=== PATIENT | male | born 2000 | race Caucasian/White ===

== ENCOUNTER 2024-10-16 23:55 | Emergency (ER) | payer MEDICARE, SELFPAY ==
[2024-10-17 00:01] VITALS: BP 129/78
[2024-10-17 00:05] VITALS: BP 129/78
--- NOTE | 2024-10-17 00:37 | ED.GENMED ---
History of Present Illness
General
Chief Complaint: Chest Pain
Source: patient
Exam Limitations: none
Time Seen by Provider: 10/17/24 00:19
History of Present Illness
History of Present Illness:
This is a 24 year old male that comes in with c/o chest tightness. States that for the past 24 hours he had had chest tightness. States that he felt like his heart was beating fast. States that he felt SOB when he would lay down. States that he had
this clicking in his back and he was told that the last time he was here he had Thoracic outlet syndrome. States that he did have chills. Denies any fever, abd pain, nausea, vomiting, diarrhea, headache, dizziness, urinary burning.
Past History
Past History
ED Past Medical History: Psychiatric (Anxiety) and Other (Asperger syndrome, RSV, Pilonidal cyst X2)
ED Past Surgical History: Other (Myringotomy tubes, Mole removed form neck)
Social History
Tobacco: Non-smoker
Alcohol: None
Drug: Marijuana
Personal: Single
Living: with family
Employment: Employed
Review of Systems
Review of Systems
All Other Systems: ROS reviewed and negative except as documented in HPI and ROS
Constitutional: Reports chills; Denies fever
EENT: Reports no symptoms
Respiratory: Reports trouble breathing; Denies cough
Cardiac: Reports chest pain
ABD/GI: Reports no symptoms; Denies abdominal pain, nausea, vomiting or diarrhea
: Reports no symptoms; Denies dysuria, frequency or urgency
Musculoskeletal: Reports no symptoms
Skin: Reports no symptoms
Neurological: Reports no symptoms; Denies dizzy or headache
Psychiatric: Reports no symptoms
Phy Exam
General Physical Exam
General Presentation: well appearing and no apparent distress
General age: appears younger than age
General Skin: warm and dry
General Habitus: normal
General Mental: alert
General Hydration: dry mucous membranes
ENT Exam
ENT Exam: TM's normal, pharynx normal and neck supple
Eye Exam
Eye Exam: EOMI
Cardiovascular Exam
Cardiovascular Exam: regular rate/rhythm, no edema, no murmur and normal peripheral pulses
Pulmonary Exam
Pulmonary Exam: lungs clear, no respiratory distress, no rales, chest non tender, no crackles, no rhonchi, no wheezing and no cough
Gastrointestinal Exam
Gastrointestinal Exam: normal bowel sounds, non tender, soft, no organomegaly, no pulsatile mass and non distended
Musculoskeletal Exam
Musculoskeletal Exam: full ROM and no edema
Skin Exam
Skin Exam: normal color, warm/dry, no rash and no petechia
Psychiatric Exam
Psychiatric Exam: normal mood/affect
Scores
Heart Score for Chest Pain Patients
STEMI patient?: No
History: Slightly or Non-Suspicious
ECG: Normal
Age: </= 45 years
Risk Factors: No Risk Factors
Troponin: </= Normal Limit
Heart Score for Chest Pain Patients: 0
Heart Score Risk: 2.5% MACE over next 6 weeks
Course
Orders/Labs/Results
Orders:
Orders
10/16/24 23:57
EKG [Electrocardiogram (*1)] Urgent
Reason for Study: Chest Pain
EKG- Treatment ONCE
10/17/24 00:36
CR Chest - 2 Views Urgent
Comment:
Reason For Exam: Chest pain
10/17/24 00:37
Ketorolac [Toradol] 30 mg IV NOW STA
10/17/24 00:52
Complete Blood Count/With Diff Urgent
Comprehensive Metabolic Panel Urgent
Troponin I Urgent
10/17/24 01:15
D-Dimer Urgent
Comment: REDRAW
Abnormal Lab Results
10/17/24
00:52
Absolute Lymphs (auto) 1.1 L 10^3/uL
(1.2-3.4)
Absolute Monos (auto) 0.8 H 10^3/uL
(0.1-0.6)
Neutrophils % 76.8 H %
(42.2-75.2)
Lymphocytes % 12.7 L %
(20.5-51.1)
Monocytes % 9.9 H %
(1.7-9.3)
Creatinine 0.6 L mg/dL
(0.7-1.3)
Glucose 139 H mg/dl
(70-99)
Albumin 5.1 H g/dl
(3.5-5.0)
10/17/24 00:52
10/17/24 00:52
Hyperglycemia, Troponin <0.012, D-dimer <0.27
Vital Signs
Initial and Last Documented VS:
Initial Vital Signs
Temp Pulse Resp BP Pulse Ox
98.2 F 101 16 129/78 98
10/17/24 00:01 10/17/24 00:01 10/17/24 00:01 10/17/24 00:01 10/17/24 00:01
Last Documented Vital Signs
Temp Pulse Resp BP Pulse Ox
98.2 F 83 16 118/68 99
10/17/24 00:01 10/17/24 01:45 10/17/24 01:45 10/17/24 01:45 10/17/24 01:45
MDM/Problems Addressed
Differential Diagnosis Includes:
reaction to marijuana. Coronary syndrome.
MDM/Problems Addressed:
This is a 24 year old male that comes in with c/o chest pain and SOB. States that he gets chest pain after he smokes marijuana and that he feels SOB when he lays down. States that this has been going on for the past 48 hours.
Will check labs, Chest x-ray.
Back into see patient. Explained that his blood work is normal. Chest x-ray is normal and D-dimer is negative. This may all be due to Anxiety. Patient to increase his water intake to 8-8oz glasses daily. Follow up with the family doctor for recheck.
Return with any concerns.
Chronic conditions affecting care: Psychiatric illness (Anxiety)
Acute Exacerbation and/or Progression of Chronic Illness:
NA
*Radiology
Radiology exam reviewed: preliminary read by ED provider (Chest- Negative for active disease. )
*Pulse Oximetry
Patient hypoxic: no
*EKG
Interpreted by ED Provider?: Yes
Heart Rate: 101
Rate: tachycardiac
Rhythm: sinus
[place]: normal axis
Interval: normal interval
QRS Pattern: normal QRS
Ischemia: no ischemia
*Critical Care Note
Total Time (30-74mins, 75-104mins- exclusive of procedures): Not Applicable
ED Attending Note
-
Portions of this chart may have been created with voice recognition software.� Occasional wrong word or��sound alike� substitutions may have occurred due to the inherent limitations of voice recognition software.
Discharge Plan
Departure
Patient Disposition: Home (Routine Discharge)
Date of Disposition: 10/17/24
Time of Disposition: 02:17
Patient with high blood pressure during this ER visit?: No
Condition: Good
Covid-19: Not Applicable
Discharge Problem:
Chest pain, Acute anxiety
Instructions: Anxiety in adults - ED discharge instructions, Chest Pain PCP Follow Up
Prescriptions:
No Action
No Current Medications
0
Referrals:
Anisa Benavides CRNP [Family Provider] - Follow up in 2-3 days
Stand Alone Forms: Return to Work
Activity Restrictions/Additional Instructions:
As discussed, your blood work is normal. Your Troponin is negative and your D-dimer is negative. Chest x-ray is normal. This may be related to your anxiety. Please increase your water intake to 8-8oz glasses daily. Follow up with the family doctor
for recheck. IF YOU HAVE ANY OTHER CONCERNS PLEASE RETURN TO THE EMERGENCY ROOM.
Interventions
Interventions:
*Risk Screen - Suicide Last Done: 10/17/24 00:01
*General Assessment Last Done: 10/17/24 00:01
*Neglect/Abuse Screening Last Done: 10/17/24 00:44
ED- Fall Risk Assessment Last Done: 10/17/24 01:06
*ED COVID-19 Vaccine History Last Done: 10/17/24 00:01
ED- Cardiac Assessment Last Done: 10/17/24 01:06
Discharge Date and Time
Print Language: HUNGARIAN
[2024-10-17 00:44] VITALS: BMI 21.9
[2024-10-17] MEDS: TORADOL 30 MG IV (00:56)
[2024-10-17 00:58] LABS: % Basophils 0.4 % (0-2); % Immature Granulocytes 0.2 % (0-0.5); % Lymphocytes 12.7 % (20.5-51.1); % Monocytes 9.9 % (1.7-9.3); % Neutrophils 76.8 % (42.2-75.2); Absolute Lymphocytes 1.1 10^3/uL (1.2-3.4); Absolute Monocytes 0.8 10^3/uL (0.1-0.6); Absolute Neutrophils 6.5 10^3/uL (1.4-6.5); Hematocrit 45.1 % (39.0-52.0); Mean Corp Hgb Conc. 35.5 g/dL (33.0-37.0); Mean Corpuscular Volume 81.9 fL (80.0-94.0); Mean Platelet Volume 8.8 fL (7.4-10.4); Nucleated Red Blood Cells % 0 % (-); Platelet Count 228 10^3/uL (130-400); Red Blood Cell Count 5.51 10^6/uL (4.70-6.10); Red Cell Dist. Width 11.9 % (11.5-14.5); White Blood Cell Count 8.5 10^3/uL (4.8-10.8)
[2024-10-17 01:23] LABS: Troponin I < 0.012 ng/ml
[2024-10-17 01:28] LABS: ALT (SGPT) 30 U/L (0-50); AST (SGOT) 36 U/L (17-59); Albumin 5.1 g/dl (3.5-5.0); Alkaline Phosphatase 53 U/L (38-126); Blood Urea Nitrogen 15 mg/dl (9-20); Calcium 9.6 mg/dl (8.4-10.2); Carbon Dioxide 28 mmol/L (22-30); Chloride 101 mmol/L (98-107); Estimated Creatinine Clearance > 125 ml/min; Glucose 139 mg/dl (70-99); Sodium 138 mmol/L (135-145); Total Bilirubin 1.3 mg/dl (0.2-1.3); Total Protein 7.8 g/dl (6.3-8.2); eGFR > 60.00
[2024-10-17 01:45] VITALS: BP 118/68
[2024-10-17 01:47] LABS: D-Dimer < 0.27 ug/mlFEU (0.00-0.50)
== END 2024-10-17 02:25 | disposition home or self-care (01) ==
LOC: EMR 23:55
PROVIDERS: Clinical Nurse Specialist Family Health; EMERGENCY PHYSICIAN Emergency Medicine; FAMILY PHYSICIAN Registered Nurse
DX: R07.89 Other chest pain (principal); R06.02 Shortness of breath; R68.83 Chills (without fever); F41.9 Anxiety disorder, unspecified; F84.5 Asperger's syndrome; G54.0 Brachial plexus disorders
CPT/HCPCS: 99284; 96374; 71046; 80053; 84484; 85025; 85379; 93005